=== PATIENT | female | born 1980 | race African-American/Black ===

== ENCOUNTER 2018-11-05 13:58 | Emergency (ER) | payer MEDICAID ==
[~2018-11-05] VITALS: Ht 165.1 cm; Wt 68.0 kg
[2018-11-05 15:30] LABS: CHLORIDE 107 mEq/L (98-107)
[2018-11-05 15:42] LABS: BASOPHILS % 1.3 % (0.0-2.0); EOSINOPHILS % 1.1 % (0.0-5.0); HEMATOCRIT. 27.5 % (36.0-48.0); HEMOGLOBIN. 8.1 g/dL (12.0-16.0); LYMPHOCYTES % 41.5 % (20.0-50.0); MEAN CORPUSCULAR HEMOGLOBIN 20.2 pg (28.0-32.0); MEAN CORPUSCULAR VOLUME 68.7 fL (81.0-99.0); MONOCYTES % 6.3 % (2.0-8.0); NEUTROPHILS % 49.8 % (40.0-76.0); RED CELL DISTRIBUTION WIDTH 21.2 % (11.6-14.6)
[2018-11-05 15:53] LABS: CLARITY URINE TURBID (CLEAR); COLOR URINE RED (YELLOW); KETONES URINE 2+ (NEGATIVE); LEUKOCYTE ESTERASE URINE 2+ (NEGATIVE); NITRITE URINE POSITIVE (NEGATIVE); OCCULT BLOOD URINE 3+ (NEGATIVE); PROTEIN URINE 2+ (NEGATIVE); SPECIFIC GRAVITY URINE 1.029 (1.005-1.030)
[2018-11-05 15:58] LABS: MEAN PLATELET VOLUME 7.8 fl (7.4-10.4); PLATELET 346 x1000/uL (130-400)
[2018-11-05 15:59] LABS: PLATELET ESTIMATE NORMAL
[2018-11-05 17:00] VITALS: BP 130/79
== END 2018-11-05 17:21 | disposition home or self-care (01) ==
LOC: ER 14:37
DX: D64.9 Anemia, unspecified (principal); N39.0 Urinary tract infection, site not specified
CPT/HCPCS: 36415; 80048; 81025; 99283